=== PATIENT | female | born 1955 | race Hispanic/Latino ===

== ENCOUNTER 2017-02-01 07:32 | Outpatient (CLI) | payer BC ==
[2017-02-01] MEDS ORDERED: LEXISCAN IV ONE ×2 (09:45→10:00)
[2017-02-01 12:48] VITALS: BP 165/72
--- NOTE | 2017-02-01 22:49 | Treadmill Report ---
THALLIUM STRESS TEST LEFT VENTRICLE: Left ventricular chamber size is within normals. Perfusion study demonstrates homogeneous uptake of the tracer in all segments, no significant perfusion defects identified. Gated analysis demonstrates normal left ventricular systolic function, ejection fraction of 60%. CONCLUSION: Normal myocardial perfusion study. JOB# [id number] CA/NTS
== END 2017-02-01 07:33 | disposition home or self-care (01) ==
LOC: CARD 07:32
PROVIDERS: ATTEND Internal Medicine Cardiovascular Disease
DX: I07.1 Rheumatic tricuspid insufficiency (principal); I34.0 Nonrheumatic mitral (valve) insufficiency; R94.31 Abnormal electrocardiogram [ECG] [EKG]
CPT/HCPCS: 78452; 93017; 93306; A9502; J2785

== ENCOUNTER 2017-07-05 06:12 | Day surgery (SDC) | payer BC ==
[~2017-07-05 06:12] MED LIST: TETRACAINE 0.5% OS PRN
[2017-07-05] MEDS ORDERED: TETRACAINE 0.5% OS PRN (07:25)
[2017-07-05] MEDS ORDERED: NACL BACTERIOSTATIC INFILTRATI ONE (07:27)
[2017-07-05] MEDS: MYDRIACYL OS SCH ×3 (07:33→07:52)
[2017-07-05] MEDS: AK-Dilate OS SCH ×3 (07:33→07:53)
[2017-07-05] MEDS: VIGAMOX OS SCH ×3 (07:34→07:53)
--- NOTE | 2017-07-05 07:49 | Anesthesia Consultation ---
Anesthesia Consult and Med Hx Date of service: 07/05/17 - Airway Anesthetic Teeth Evaluation: Good ROM Head & Neck: Adequate Mental/Hyoid Distance: Adequate Mallampati Class: Class III Intubation Access Assessment: Possibly Difficult - Pulmonary Exam CTA: Yes - Cardiac Exam Cardiac Exam: RRR - Pre-Operative Health Status ASA Pre-Surgery Classification: ASA3 Proposed Anesthetic Plan: MAC - Pulmonary Hx Smoking: Yes - Cardiovascular System Hx Hypertension: No (hiigh cholesterol) Hx Percutaneous Transluminal Coronary Angioplasty (PTCA): No (has had heart cath but no stents) - Central Nervous System Hx Psychiatric Problems: No - Gastrointestinal Hx Gastroesophageal Reflux Disease: Yes - Other Systems Hx Cancer: No
--- NOTE | 2017-07-05 07:50 | Anesthesia Day of Surgery ---
Anesthesia Day of Surgery - Day of Surgery Patient Examined: Yes Patient H&P Reviewed: Yes Patient is NPO: Yes
[2017-07-05] MEDS ORDERED: SUBLIMAZE ONE (08:17)
[2017-07-05] MEDS ORDERED: VERSED ONE (08:17)
[2017-07-05] MEDS ORDERED: NACL P/F VIAL (10 ML) 10 ML ONE (08:41)
--- NOTE | 2017-07-05 09:01 | Short Stay Summary ---
Short Stay Documentation Date of service: 07/05/17 - History H&P: obtained from office - Allergies and Medications Current Medications: Allergies No Known Allergies Allergy (Unverified 07/02/17 17:15) Home Medications Medication Instructions Recorded Confirmed Last Taken Type Aspirin [Lo-Dose Aspirin EC] 81 mg PO DAILY 07/02/17 07/05/17 07/04/17 22:00 History Famotidine [Pepcid] 20 mg PO DAILY 07/02/17 07/02/17 07/04/17 22:00 History Simvastatin [Zocor] 20 mg PO DAILY 07/02/17 07/02/17 07/04/17 22:00 History Active Medications Moxifloxacin HCl (Vigamox) 1 drops OS Q5MIN [facility] Stop: 07/07/17 06:01 Last Admin: 07/05/17 07:53 Dose: 1 drops Phenylephrine HCl (Ak-Dilate) 1 drops OS Q5MIN [facility] Stop: 07/07/17 06:01 Last Admin: 07/05/17 07:53 Dose: 1 drops Prednisolone Acetate (Pred Forte 1%) 1 drops OS QID LIEN Tetracaine HCl (Tetracaine 0.5%) 1 drops OS Q5M PRN PRN Reason: Analgesia Stop: 07/05/17 10:00 Last Admin: 07/05/17 07:32 Dose: 1 drops Tropicamide (Mydriacyl) 1 drops OS Q5MIN [facility] Stop: 07/07/17 06:01 Last Admin: 07/05/17 07:52 Dose: 1 drops - Brief post op/procedure progress note Date of procedure: 07/05/17 Pre-op diagnosis: left cataract Post-op diagnosis: same Procedure: Phacoemulsification with intraocular lens insertion left eye Anesthesia: MAC Surgeon: MARIUM PARHAM Estimated blood loss: none Pathology: none Condition: stable - Disposition Condition at discharge: Good Disposition: DC-01 TO HOME OR SELFCARE - Discharge Diagnoses (1) Cataract Status: Resolved Qualifiers: Cataract type: age-related Age-related cataract type: nuclear Infantile/ juvenile cataract type: I Traumatic cataract type: T Complicated cataract type: C Secondary cataract type: S Laterality: left Qualified Code(s): H25.12 - Age-related nuclear cataract, left eye Short Stay Discharge Plan Follow up with: VENKAT WYATT MD [Primary Care Provider] - 7 Days
--- NOTE | 2017-07-05 09:01 | Operative Report ---
Operative Report Operative Report: PATIENT'S NAME: DATE OF : DATE OF SURGERY: 07/05/2017 PREOPERATIVE DIAGNOSIS: Cataract left eye POSTOPERATIVE DIAGNOSIS: Same OPERATIVE PROCEDURE: Phacoemulsification with intraocular lens implantation, left eye SURGEON: Erendira Wilkins M.D. FRONT OFFICE JAVA DEVELOPER SURGEON: Tom Lens: [id number] 23.0 D ANESTHESIA: Monitored anesthesia care in combination with topical and intracameral anesthesia because of the established specific risk of reflux, arrhythmias, or anxiety attacks associated with ocular manipulation, as well as the difficulty of the gun striper to manage such potentially catastrophic events while simultaneously attempting to complete the surgical procedure and was deemed necessary for the patient's safety to have an Postal Carrier present during the procedure whenever possible. An Postal Carrier was utilized to regulate the intravenous sedation of the patient so the patient was cooperative yet not asleep in order for the patient to successfully maintain fixation of the eye on the operating light of the microscope. COMPLICATIONS: No surgical complications No blood loss. ALLERGIES: No known drug allergies PROGNOSIS: Excellent INDICATIONS FOR SURGERY: The patient is undergoing surgery in the hopes of eliminating or improving these visual difficulties. PROCEDURE: After arriving at the surgery center, the patient was given topical anesthetic and dilating drops, as noted in the record. The patient was then taken into the operating room and given more anesthetic drops. The eyelids , lashes, and lid margins were scrubbed with Betadine solution, and the patient was draped. The Nurse Postal Carrier administered IV sedation and monitored the patient during the procedure. The eye was then fixated with a 0.12, and a stab incision was made in the peripheral clear cornea into the anterior chamber. This was made on my left side. Viscoelastic was next used to fill the anterior chamber. The eye was once again fixated with the 0.12 forceps and a keratome was used make an incision in clear cornea peripherally on my right hand side temporally. The capsule forceps were used to open the central anterior capsule and then make a continuous round capsulotomy. Hydrodissection was carried out utilizing a cannula and balanced salt solution to delineate the cortical material from the capsule and the nucleus from the cortical material. The phaco tip was introduced into the eye and used to remove the anterior cortical material in the area of the capsulotomy. Then the phaco tip was buried into the nucleus, and a chopping instrument was introduced into the eye and used to provide countertraction in the nucleus between this instrument and the phaco tip fracturing the nucleus. This procedure was repeated multiple times, providing multiple small segments of the lens, and then the phaco tip was used to remove each of these segments. An I/A tip was then used to remove the remaining cortex. The anterior chamber was refilled with viscoelastic. An one-piece, acrylic intraocular lens was then placed into an inserting cartridge. The tip of the inserting cartridge was introduced into the keratome incision and into the anterior chamber. The implant was gently advanced through the cartridge and into the eye, where it unfolded, and both haptics were placed in the capsular bag, where it centered nicely and appeared to be well fixated. After placement of the intraocular lens, the I~and~A handpiece was placed back into the eye and used to remove the viscoelastic, including viscoelastic that was behind the optic of the intraocular lens. The anterior chamber was then filled with balanced salt solution, and hydration of the wound was used to cause swelling of the wound and more appropriate watertight closure. When the wound was found to be firm, the patient was asked to comment on how bright the light was. If there was no light perception at all or if the light was substantially dimmer than during the rest of the surgery, the amount of fluid in the eye was decompressed to lower the intraocular pressure until the patient could see the bright light again. This was done to avoid any damage or decreased blood flow to the optic nerve. MEDICATIONS APPLIED AT END OF SURGERY: One drop of Pred Forte and Vigamox The patient was given a shield to wear at night and was instructed not to rub or push on the eye. DISCHARGE SUMMARY: The patient was released in stable condition. The patient and those with the patient were given a written sheet of postoperative instructions and counseling on any abnormal laboratory studies. The patient is to see us tomorrow for follow-up in the office and is to call immediately for any difficulties. Erendira Wilkins M.D. Date
[2017-07-05 09:27] VITALS: BP 132/73
[2017-07-05] MEDS ORDERED: PRED FORTE 1% OS SCH ×2 (10:00→13:00)
--- NOTE | 2017-07-05 10:44 | Post Anesthesia Evaluation ---
- Post Anesthesia Evaluation Patient Participated: Yes Airway Patent: Yes Stable Respiratory Function: Yes Temp > 96.8F: Yes Pain Manageable: Yes Adequeate Hydration: Yes Anesthesia Complications: No
[2017-07-05] MEDS ORDERED: PRED FORTE 1% ONE (12:59)
== END 2017-07-05 09:40 | disposition home or self-care (01) ==
LOC: OR 06:12
DX: H25.12 Age-related nuclear cataract, left eye (principal); F17.210 Nicotine dependence, cigarettes, uncomplicated; E78.00 Pure hypercholesterolemia, unspecified; K21.9 Gastro-esophageal reflux disease without esophagitis; M19.012 Primary osteoarthritis, left shoulder; M19.011 Primary osteoarthritis, right shoulder; Z90.710 Acquired absence of both cervix and uterus
CPT/HCPCS: 66984; J2250; J3010; V2632

== ENCOUNTER 2017-08-08 07:17 | Day surgery (SDC) | payer BC ==
[2017-08-08] MEDS ORDERED: WATER FOR IRRIG STERILE ONE (07:21)
[2017-08-08] MEDS ORDERED: WATER FOR IRRIG STERILE IR ONE (07:21)
[2017-08-08] MEDS ORDERED: NACL 0.9% 1000 ML 1,000 ML IV SCH (08:00)
--- NOTE | 2017-08-08 08:19 | Anesthesia Day of Surgery ---
Anesthesia Day of Surgery - Day of Surgery Patient Examined: Yes Patient H&P Reviewed: Yes Patient is NPO: Yes
--- NOTE | 2017-08-08 08:19 | Anesthesia Consultation ---
Anesthesia Consult and Med Hx Date of service: 08/08/17 - Airway Anesthetic Teeth Evaluation: Good ROM Head & Neck: Inadequate Mental/Hyoid Distance: Adequate Mallampati Class: Class III Intubation Access Assessment: Possibly Difficult - Pulmonary Exam CTA: Yes - Cardiac Exam Cardiac Exam: RRR - Pre-Operative Health Status ASA Pre-Surgery Classification: ASA3 Proposed Anesthetic Plan: MAC - Pulmonary Hx Smoking: Yes (1 ppd) - Cardiovascular System Hx Hypertension: No (high cholesterol) Hx Percutaneous Transluminal Coronary Angioplasty (PTCA): No (has had heart cath but no stents) - Gastrointestinal Hx Gastroesophageal Reflux Disease: Yes (takes pepcid last night) - Other Systems Hx Obesity: Yes
[2017-08-08] MEDS ORDERED: DIPRIVAN 10 MG/ML IV ONE ×2 (08:43)
[2017-08-08] MEDS ORDERED: PEPCID IV NR (09:00)
--- NOTE | 2017-08-08 09:52 | Short Stay Summary ---
Short Stay Documentation Date of service: 08/08/17 Narrative H&P: Ms Allen is a 62 yo wf who presents for screening colonoscopy. She reports last having colonoscopy ~10-11 years ago which was unremarkable. She denies GI complaints at this time including abd pain, gi bleeding, change in bowel habits , or weight loss. Not on plavix or any anticoagulation. - History Past Medical History: GERD, hyperlipidemia Past Surgical History: appendectomy Social history: no significant social history - Allergies and Medications Current Medications: Allergies No Known Allergies Allergy (Verified 07/18/17 10:09) Home Medications Medication Instructions Recorded Confirmed Last Taken Type Aspirin [Lo-Dose Aspirin EC] 81 mg PO DAILY 07/02/17 07/18/17 07/18/17 History Famotidine [Pepcid] 20 mg PO DAILY 07/02/17 07/18/17 08/07/17 History Simvastatin [Zocor] 20 mg PO DAILY 07/02/17 07/18/17 08/07/17 History Active Medications Famotidine (Pepcid) 20 mg IV PREOP NR Stop: 08/08/17 20:00 Sodium Chloride (Nacl 0.9% 1000 Ml) 1,000 mls @ 50 mls/hr IV DIRECT LIEN Last Admin: 08/08/17 08:03 Dose: 50 mls/hr - Physical exam General appearance: no acute distress HEENT: Mucous membr. moist/pink Lungs: Clear to auscultation Heart: Regular rate, Normal S1, Normal S2 Gastrointestinal: normal, normoactive bowel sounds Extremities: No edema, Full ROM - Brief post op/procedure progress note Date of procedure: 08/08/17 Pre-op diagnosis: screening colonoscopy Post-op diagnosis: other (internal hemorrhoids) Procedure: Colonoscopy Anesthesia: GETA Findings: Internal hemorrhoids Surgeon: ISIAH MCFADDEN Estimated blood loss: none Pathology: none Condition: stable - Disposition Condition at discharge: Good Disposition: DC-01 TO HOME OR SELFCARE Short Stay Discharge Plan Follow up with: VENKAT WYATT MD [Primary Care Provider] - 7 Days
--- NOTE | 2017-08-08 10:04 | Operative Report ---
Operative Report Operative Report: COLONOSCOPY PROCEDURE NOTE DATE OF PROCEDURE: 08/08/2017 ENDOSCOPIST: Mando Steven PRE-OP DIAGNOSIS: screening colonoscopy POST-OP DIAGNOSIS: internal hemorrhoids ANESTHESIA: MAC COMPLICATIONS: no immediate complications ESTIMATED BLOOD LOSS: none PROCEDURE: After consent was obtained, the patient was placed in the left lateral decubitus position. The fujinon colonoscope was inserted into the rectum under direct vision, and advanced to the cecum without difficulty. The patient tolerated the procedure well. The views of the mucosa were good. The quality of prep was good. The patient's vital signs were monitored continuously throughout the procedure. FINDINGS: There were internal hemorrhoids visualized on retroflexion view. Otherwise, the colon appeared normal. IMPRESSION: 1. Internal hemorrhoids, otherwise unremarkable colonoscopy RECOMMENDATIONS: -repeat colonoscopy in 10 years
[2017-08-08 10:07] VITALS: BP 131/56
--- NOTE | 2017-08-08 10:56 | Post Anesthesia Evaluation ---
- Post Anesthesia Evaluation Patient Participated: Yes Airway Patent: Yes Stable Respiratory Function: Yes Nausea/Vomiting: No Temp > 96.8F: Yes Pain Manageable: Yes Adequeate Hydration: Yes Anesthesia Complications: No Block Receding Appropriately: Not Applicable Patient on Ventilator: No
== END 2017-08-08 07:18 | disposition home or self-care (01) ==
LOC: GIO 07:17
PROVIDERS: ATTEND Internal Medicine Gastroenterology
DX: Z12.11 Encounter for screening for malignant neoplasm of colon (principal); K21.9 Gastro-esophageal reflux disease without esophagitis; K64.8 Other hemorrhoids; F17.210 Nicotine dependence, cigarettes, uncomplicated; M19.019 Primary osteoarthritis, unspecified shoulder; E78.00 Pure hypercholesterolemia, unspecified; E66.9 Obesity, unspecified; Z68.39 Body mass index [BMI] 39.0-39.9, adult; Z79.82 Long term (current) use of aspirin; Z79.899 Other long term (current) drug therapy; Z98.61 Coronary angioplasty status; Z98.890 Other specified postprocedural states
CPT/HCPCS: 45378; J2704; J7030

== ENCOUNTER 2018-02-14 07:08 | Outpatient (CLI) | payer BC ==
--- NOTE | 2018-02-14 12:23 | Magnetic Resonance Report ---
MRI UPPER EXTREMITY JOINT RIGHT WITHOUT CONTRAST HISTORY: Tear of right rotator cuff TECHNIQUE: Multisequence, multiplanar MRI. FINDINGS: No relevant comparisons at this facility. There is complete rupture and retraction of the supraspinatus and infraspinatus tendons. There appears to be mild fatty atrophy of the supraspinatus and infraspinatus muscles which indicates a chronic process. The subscapularis tendon remains attached although it demonstrates diffuse increased signal and thickening consistent with advanced tendinosis or possibly a partial tear. The teres minor tendon at its attachment are intact and unremarkable. The biceps tendon and its anchor on the superior labrum are not confidently identified and probably ruptured. There are moderate osteoarthritic changes at the shoulder. Moderate hypertrophic changes at the a.c. joint. No gross labral defect is appreciated. The bone marrow signal is within normal limits. No evidence for fracture or bone lesion. A moderate joint effusion is identified which extends to the subacromial and subdeltoid bursa. IMPRESSION: Complete rupture and retraction of the supraspinatus and infraspinatus tendons. Advanced tendinosis versus partial tear of the subscapularis tendon. Probable rupture of the long head of the biceps tendon. Osteoarthritis. Joint effusion.
== END 2018-02-14 07:09 | disposition home or self-care (01) ==
LOC: MRI 07:08
PROVIDERS: ATTEND Orthopaedic Surgery
DX: M75.121 Complete rotator cuff tear or rupture of right shoulder, not specified as traumatic (principal); M19.011 Primary osteoarthritis, right shoulder; F17.210 Nicotine dependence, cigarettes, uncomplicated

== ENCOUNTER 2020-07-02 11:18 | Outpatient (CLI) | payer BC ==
[2020-07-02 11:51] LABS: Basophils # (Auto) 0.1 K/mm3 (0.0-0.1); Basophils % (Auto) 0.9 % (0.0-1.8); Eosinophils # (Auto) 0.8 K/mm3 (0.0-0.4); Eosinophils % (Auto) 7.9 % (0.0-4.3); Hematocrit 41.4 % (30.3-42.9); Lymphocytes # (Auto) 2.7 K/mm3 (1.2-5.4); Lymphocytes % (Auto) 26.6 % (13.4-35.0); Mean Corpuscular HGB Conc 34 % (30-34); Mean Corpuscular Volume 93 fl (79-97); Monocytes # (Auto) 0.7 K/mm3 (0.0-0.8); Monocytes % (Auto) 6.4 % (0.0-7.3); Platelet Count 299 K/mm3 (140-440); Red Blood Count 4.46 M/mm3 (3.65-5.03); Red Cell Distribution Width 13.1 % (13.2-15.2)
[2020-07-02 12:13] LABS: Alanine Aminotransferase 19 units/L (7-56); Albumin 4.1 g/dL (3.9-5); Blood Urea Nitrogen 16 mg/dL (7-17); Calcium 9.3 mg/dL (8.4-10.2); Chol/HDL Ratio 3.93 %; HDL Cholesterol 46 mg/dL (40-59); Hemolysis Index 5; LDL Cholesterol,Direct 122 mg/dL (50-130)
[2020-07-02 12:14] LABS: BUN/Creatinine Ratio 23
== END 2020-07-02 11:19 | disposition home or self-care (01) ==
LOC: LAB 11:18
PROVIDERS: ATTEND Internal Medicine
DX: E78.5 Hyperlipidemia, unspecified (principal); R45.89 Other symptoms and signs involving emotional state; Z79.899 Other long term (current) drug therapy
CPT/HCPCS: 36415; 80053; 80061; 83516; 84443; 85025

== ENCOUNTER 2020-10-21 08:55 | Outpatient (CLI) | payer BC ==
--- NOTE | 2020-10-21 09:51 | Mammography Report ---
DIGITAL SCREENING MAMMOGRAM WITH CAD, 10/21/2020 CLINICAL INFORMATION / INDICATION: Routine screening mammography. SCREENING MAMMO TECHNIQUE: Digital bilateral 2D mammography was obtained in the craniocaudal and mediolateral obliqu e projections. This examination was interpreted with the benefit of Computer-Aided Detection analysis . COMPARISON: 07/17/2017 FINDINGS: Breast Density: The breasts are heterogeneously dense, which may obscure small masses. No dominant mass, suspicious calcifications, or architectural distortion in either breast. Stable mild nodularity in the breasts, as well as a few scattered benign calcifications. IMPRESSION: No mammographic evidence of malignancy. Follow up recommendation: Routine yearly BI-RADS Category 2: Benign. A "normal" or negative report should not discourage follow up or biopsy of a clinically significant f inding. A written summary of these findings will be mailed to the patient. The patient will be entered into a mammography reporting system which will generate a reminder letter for the patient's next appointmen t at the appropriate interval. The [employer] recommends yearly mammograms starting at age 40 and continuing as l julia as a woman is in good health. Breast MRI is recommended for women with an approximate 20-25% or greater lifetime risk of breast cancer, including women with a strong family history of breast or ova seferino cancer or who have been treated for Hodgkin's disease. Signer Name: Cole Marino MD Signed: 10/21/2020 9:47 AM Workstation Name: [id number]
== END 2020-10-21 08:56 | disposition home or self-care (01) ==
LOC: MAMMO 08:55
PROVIDERS: ATTEND Internal Medicine
DX: Z12.31 Encounter for screening mammogram for malignant neoplasm of breast (principal); Z78.0 Asymptomatic menopausal state
CPT/HCPCS: 77067

== ENCOUNTER 2020-10-28 09:38 | Outpatient (CLI) | payer BC ==
--- NOTE | 2020-10-28 11:06 | Mammography Report ---
DEXA BONE DENSITY SCAN INDICATION / CLINICAL INFORMATION: OSTEOPOROSIS. 65 years Female COMPARISON: None available. LUMBAR SPINE, L1-L4: - Bone mineral density (BMD) = 0.943 g/cm2. - T-score = -0.9 - Z-score = 0.8 Change (%) since most recent prior (if available): None available. RIGHT HIP, : Not performed. LEFT HIP, NECK : - Bone mineral density (BMD) = 0.576 g/cm2. - T-score = -2.5 - Z-score = -1.0 Change (%) since most recent prior (if available): None available. IMPRESSION: WHO Classification: Osteoporosis. Fracture Risk: High. Note: 10-Year Fracture Risk (FRAX) not reported. This DEXA unit lacks FRAX functionality. BMD Reporting Guidelines (ISCD, 2015) BMD Reporting in Postmenopausal Women and in Men Age 50 and Older - T-scores are preferred. - The WHO densitometric classification is applicable. BMD Reporting in Females Prior to Menopause and in Males Younger Than Age 50 - Z-scores, not T-scores, are preferred. This is particularly important in children. - A Z-score of -2.0 or lower is defined as below the expected range for age, and a Z-score above -2.0 is within the expected range for age. - Osteoporosis cannot be diagnosed in men under age 50 on the basis of BMD alone. - The WHO diagnostic criteria may be applied to women in the menopausal transition. http://www.iscd.org/official-positions/1013-czfy-jccgelnd-positions-adult/ Signer Name: Brett Alexander MD Signed: 10/28/2020 11:01 AM Workstation Name: [id number]
== END 2020-10-28 09:39 | disposition home or self-care (01) ==
LOC: MAMMO 09:38
PROVIDERS: ATTEND Internal Medicine
DX: M81.0 Age-related osteoporosis without current pathological fracture (principal); Z78.0 Asymptomatic menopausal state
CPT/HCPCS: 77080